=== PATIENT | female | born 1985 | race African-American/Black ===

== ENCOUNTER 2016-08-04 13:36 | Emergency (ER) | payer OTHER ==
[~2016-08-04] VITALS: Ht 152.4 cm; Wt 134.7 kg
[~2016-08-04 13:36] MED LIST: FLUT9.9S NS; HYDR-971 PO; PENI500T PO; TRAM-29 PO
[2016-08-04] MEDS ORDERED: IV NORMAL SALINE 1000ML BAG 1,000 ML IV SCH (14:07)
[2016-08-04] MEDS ORDERED: ONDANSETRON PF 4 MG/2 ML VIAL. IV ONE (14:15)
[2016-08-04] MEDS ORDERED: ONDANSETRON PF 4 MG/2 ML VIAL. ONE (14:19)
[2016-08-04 14:24] LABS: BILIRUBIN,URINE NEGATIVE (NEG); GLUCOSE,URINE NEGATIVE (NEG); NITRITE,URINE NEGATIVE (NEG); PH,URINE 5.5; PROTEIN,URINE NEGATIVE (NEG-TRACE); UROBILINOGEN,URINE 0.2 mg/dL (0.2 mg/dL)
[2016-08-04 14:41] LABS: BACTERIA,URINE FEW /HPF (0-FEW); RBC,URINE 0 /HPF (0-2); SQUAMOUS EPITHELIAL CELL,UR MANY /LPF; WBC,URINE RARE /HPF (0-4)
[2016-08-04 14:42] LABS: BASO % 1 % (0-3); EOS % 2 % (0-3); HEMATOCRIT 37.4 % (36.0-47.0); HEMOGLOBIN 12.5 g/dL (12.0-15.5); LYMPH # 1.7 x10^3/uL (1.0-4.8); LYMPH % 21 % (24-48); MEAN CORPUSCULAR HEMOGLOBIN 28 pg (25-35); MEAN CORPUSCULAR HGB CONC 34 g/dL (31-37); MEAN CORPUSCULAR VOLUME 83 fL (79-100); MONO % 9 % (0-9); NEUT % 68 % (31-73); PLATELET COUNT 362 x10^3/uL (140-400); RED CELL DISTRIBUTION WIDTH 15.5 % (11.5-14.5); WHITE BLOOD COUNT 8.4 x10^3/uL (4.0-11.0)
[2016-08-04 15:18] LABS: CALCIUM 8.9 mg/dL (8.5-10.1); CREATININE 1.3 mg/dL (0.6-1.0); POTASSIUM 3.2 mmol/L (3.5-5.1)
[2016-08-04 15:25] LABS: ALBUMIN 3.3 g/dL (3.4-5.0); ALBUMIN/GLOBULIN RATIO 0.7 (1.0-1.7); MAGNESIUM 1.8 mg/dL (1.8-2.4); TOTAL BILIRUBIN 0.6 mg/dL (0.2-1.0); TOTAL PROTEIN 7.8 g/dL (6.4-8.2)
[2016-08-04] MEDS ORDERED: metroNIDAZOLE 500 MG TABLET PO ONE (16:30)
[2016-08-04 16:41] VITALS: BP 119/66
[2016-08-04] MEDS ORDERED: METR500T PO (16:42)
--- NOTE | 2016-08-04 16:42 | PHYS DOC ---
Past Medical History Past Medical History: Asthma, Bronchitis, Diabetes-Type II, Hypertension, Other Additional Past Medical Histor: obesity Past Surgical History: No Surgical History Alcohol Use: None Drug Use: None Adult General Chief Complaint Chief Complaint: MULTIPLE COMPLAINTS HPI HPI Patient is a 30 year old female who presents with complaint of vaginal odor and itching for approximately 1 week. Patient states that she has had malodorous clearish discharge during that time. Patient also states that she has been having dizziness and lightheadedness. Patient denies any chest pain, shortness of breath, or abdominal pain associated with her symptoms. Patient does admit to mild dysuria. Due to persistent symptoms the patient came to the emergency department for further evaluation. Patient states that her dizziness has been positional. Patient states that she did have problems with diarrhea over one week ago. Denies any fevers currently. Patient rates her discomfort as 9 out of 10. Review of Systems Review of Systems Constitutional: Lightheadedness, denies fever or chills [] Eyes: Denies change in visual acuity, redness, or eye pain [] HENT: Denies nasal congestion or sore throat [] Respiratory: Denies cough or shortness of breath [] Cardiovascular: Denies chest pain or edema [] GI: Denies abdominal pain, nausea, vomiting, bloody stools or diarrhea [] : Malodorous vaginal discharge, vaginal itching [] Musculoskeletal: Denies back pain or joint pain [] Integument: Denies rash or skin lesions [] Neurologic: Denies headache, focal weakness or sensory changes [] Current Medications Current Medications Current Medications Medications (Trade) Dose Ordered Sig/Kay Start Time Stop Time Status Last Admin Dose Admin Metronidazole (Flagyl) 500 mg 1X ONCE 08/04/16 16:30 08/04/16 16:31 DC 08/04/16 16:41 500 MG Ondansetron HCl (Zofran) 4 mg STK-MED ONCE 08/04/16 14:19 08/04/16 14:20 DC Potassium Chloride (Klor-Con) 40 meq 1X ONCE 08/04/16 16:45 08/04/16 16:46 DC 08/04/16 16:41 40 MEQ Sodium Chloride 1,000 ml @ 1,000 mls/hr Q1H 08/04/16 14:07 08/04/16 15:06 DC 08/04/16 14:29 1,000 MLS/HR Allergies Allergies Allergies Coded Allergies Type Severity Reaction Last Updated Verified No Known Drug Allergies 09/11/13 No Physical Exam Physical Exam Constitutional: Alert, obese, afebrile, appears in mild discomfort. [] HENT: Normocephalic, atraumatic, bilateral external ears normal, oropharynx moist, no oral exudates, nose normal. [] Eyes: PERRLA, EOMI, conjunctiva normal, no discharge. [] Neck: Normal range of motion, no tenderness, supple, no stridor. [] Cardiovascular:Heart rate regular rhythm, no murmur [] Lungs & Thorax: Bilateral breath sounds clear to auscultation [] Abdomen: Bowel sounds normal, soft, no tenderness, no masses, no pulsatile masses. Pelvic: Normal external exam, clearish malodorous discharge present in vaginal canal, no vaginal bleeding present, no cervical motion tenderness, no midline or bilateral adnexal tenderness on bimanual exam [] Skin: Warm, dry, no erythema, no rash. [] Back: No tenderness, no CVA tenderness. [] Extremities: No tenderness, no cyanosis, no clubbing, ROM intact, no edema. [] Neurologic: Alert and oriented X 3, normal motor function, normal sensory function, no focal deficits noted. [] Current Patient Data Vital Signs Vital Signs Date Time Temp Pulse Resp B/P (MAP) Pulse Ox O2 Delivery O2 Flow Rate FiO2 08/04/16 16:41 88 18 119/66 (83) 99 Room Air 08/04/16 13:53 98.2 98.2 Lab Values Laboratory Tests Test 08/04/16 13:21 08/04/16 14:10 08/04/16 14:22 08/04/16 14:23 POC Urine HCG, Qualitative Hcg negative (Negative) Urine Collection Type Void Urine Color Straw Urine Clarity Clear Urine pH 5.5 Urine Specific [place] 1.010 Urine Protein Negative mg/dL (NEG-TRACE) Urine Glucose (UA) Negative mg/dL (NEG) Urine Ketones (Stick) Negative mg/dL (NEG) Urine Blood Negative (NEG) Urine Nitrite Negative (NEG) Urine Bilirubin Negative (NEG) Urine Urobilinogen Dipstick 0.2 mg/dL (0.2 mg/dL) Urine Leukocyte Esterase Negative (NEG) Urine RBC 0 /HPF (0-2) Urine WBC Rare /HPF (0-4) Urine Squamous Epithelial Cells Many /LPF Urine Bacteria Few /HPF (0-FEW) Urine Mucus Slight /LPF Glucose (Fingerstick) 130 mg/dL (70-99) H White Blood Count 8.4 x10^3/uL (4.0-11.0) Red Blood Count 4.50 x10^6/uL (3.50-5.40) Hemoglobin 12.5 g/dL (12.0-15.5) Hematocrit 37.4 % (36.0-47.0) Mean Corpuscular Volume 83 fL (79-100) Mean Corpuscular Hemoglobin 28 pg (25-35) Mean Corpuscular Hemoglobin Concent 34 g/dL (31-37) Red Cell Distribution Width 15.5 % (11.5-14.5) H Platelet Count 362 x10^3/uL (140-400) Neutrophils (%) (Auto) 68 % (31-73) Lymphocytes (%) (Auto) 21 % (24-48) L Monocytes (%) (Auto) 9 % (0-9) Eosinophils (%) (Auto) 2 % (0-3) Basophils (%) (Auto) 1 % (0-3) Neutrophils # (Auto) 5.7 x10^3uL (1.8-7.7) Lymphocytes # (Auto) 1.7 x10^3/uL (1.0-4.8) Monocytes # (Auto) 0.7 x10^3/uL (0.0-1.1) Eosinophils # (Auto) 0.2 x10^3/uL (0.0-0.7) Basophils # (Auto) 0.0 x10^3/uL (0.0-0.2) Sodium Level 136 mmol/L (136-145) Potassium Level 3.2 mmol/L (3.5-5.1) L Chloride Level 99 mmol/L (98-107) Carbon Dioxide Level 28 mmol/L (21-32) Anion Gap 9 (6-14) Blood Urea Nitrogen 28 mg/dL (7-20) H Creatinine 1.3 mg/dL (0.6-1.0) H Estimated GFR (Cockcroft-Gault) 59.0 BUN/Creatinine Ratio 22 (6-20) H Glucose Level 132 mg/dL (70-99) H Calcium Level 8.9 mg/dL (8.5-10.1) Magnesium Level 1.8 mg/dL (1.8-2.4) Total Bilirubin 0.6 mg/dL (0.2-1.0) Aspartate Amino Transferase (AST) 22 U/L (15-37) Alanine Aminotransferase (ALT) 29 U/L (14-59) Alkaline Phosphatase 75 U/L (46-116) Total Protein 7.8 g/dL (6.4-8.2) Albumin 3.3 g/dL (3.4-5.0) L Albumin/Globulin Ratio 0.7 (1.0-1.7) L Laboratory Tests 08/04/16 14:23 Laboratory Tests 08/04/16 14:23 Microbiology 08/04/16 Wet Prep - Final, Complete EKG EKG Interpreted by me: Heart rate 86, sinus rhythm, normal intervals, normal axis, T -wave inversions in the inferior leads and in V3 through V6, no acute ST elevations or depressions [] Radiology/Procedures Radiology/Procedures Not performed [] Course & Med Decision Making Course & Med Decision Making Pertinent Labs and Imaging studies reviewed. (See chart for details) The patient was given IV fluids in the emergency department. Patient's blood work shows evidence of dehydration. Patient also found to have low potassium levels which were replaced orally without difficulty. Patient's wet prep showed evidence of clue cells consistent with diagnosis of bacterial vaginosis. Patient started on Flagyl therapy in the emergency department. Patient will continue on seven-day course of antibiotics for treatment. Advised continued hydration and use of antibiotic for outpatient treatment. Patient was found to have irregularities on her EKG. Patient however does not display any evidence of chest pain or shortness of breath on exam. I consulted Dr. Shah of cardiology who stated it would be appropriate for the patient to follow-up as an outpatient for further evaluation of her abnormal EKG. Advised return emergency department for any worsening symptoms and recommended follow-up in [address] Shah. Patient voiced understanding and in agreement with treatment plan. Dragon Disclaimer Dragon Disclaimer This electronic medical record was generated, in whole or in part, using a voice recognition dictation system. Departure Departure Impression: Primary Impression: Bacterial vaginosis Additional Impressions: Dehydration Hypokalemia Disposition: 01 HOME, SELF-CARE Condition: IMPROVED Referrals: GEOVANNY ROQUE (PCP) SANDIP SHAH MD Patient Instructions: Bacterial Vaginosis, Dehydration, Adult, Hypokalemia Additional Instructions: Follow-up with Dr. Shah of cardiology in the next 3 days. Return to the emergency department for any worsening symptoms Scripts Metronidazole (FLAGYL) 500 Mg Tablet 1 TAB PO BID, #14 TAB Prov: NIRAV BROWN MD 08/04/16 Problem Qualifiers NIRAV BROWN MD August 04, 2016 16:42
[2016-08-04] MEDS ORDERED: POTASSIUM CHLORIDE 20 MEQ TABLET.ER. PO ONE (16:45)
--- NOTE | 2016-08-05 11:29 | EKG ---
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
== END 2016-08-04 16:53 | disposition home or self-care (01) ==
LOC: ER 13:36
DX: N76.0 Acute vaginitis (principal); E86.0 Dehydration; E87.6 Hypokalemia; I10 Essential (primary) hypertension; J45.909 Unspecified asthma, uncomplicated; E11.9 Type 2 diabetes mellitus without complications; E66.9 Obesity, unspecified; Z68.43 Body mass index [BMI] 50.0-59.9, adult
CPT/HCPCS: 36415; 80053; 81001; 82947; 83735; 85027; 87491; 87591; 93005; 96361; 96374; 99285; J2405; J7030; Q0111; 81025

== ENCOUNTER 2016-09-06 23:28 | Emergency (ER) | payer OTHER ==
[~2016-09-06] VITALS: Ht 152.4 cm; Wt 136.1 kg
[~2016-09-06 23:28] MED LIST changes: +METR500T PO; -TRAM-29 PO; +TRAM-48 PO
[2016-09-06] MEDS ORDERED: ASPI-482 PO (23:56)
--- NOTE | 2016-09-06 23:56 | PHYS DOC ---
Past Medical History Past Medical History: Asthma, Bronchitis, Diabetes-Type II, Hypertension, Other Additional Past Medical Histor: obesity Past Surgical History: No Surgical History Alcohol Use: None Drug Use: None Adult General Chief Complaint Chief Complaint: chest pain HPI HPI 31-year-old female presenting to the emergency department today with chest pain. She describes it as a gripping pain. It started approximately one or 2:00 this afternoon is intermittent and associated with lightheadedness. She reports normal oral intake and reports normal urinary output. The pain is nonradiating mild to moderate. She reports having an echocardiogram scheduled for later this week. Review of systems is negative for fevers chills nausea vomiting or diaphoresis. She denies unilateral leg swelling hemoptysis personal or family history of blood clotting disorder. She denies recent surgery or immobilization. All other review of systems is negative unless otherwise noted in history of present illness. Pertinent physical exam findings showed a soft nontender abdomen. Lungs are clear to auscultation. No evidence of DVT the legs. ED course: 31-year-old female presenting with chest pain. EKG unremarkable. Blood work obtained. EKG and chest x-ray unremarkable. Blood work unremarkable including a negative troponin. Perc negative. The patient was then discharged home in stable condition to follow up with their primary care physician over the next 2-3 days. They were to return if their symptoms worsened or if they were concerned for any reason. [id number] discharge instructions and return precautions were given. Patient's questions were answered to their satisfaction. Patient is comfortable plan. Review of Systems Review of Systems SEE ABOVE. Current Medications Current Medications Current Medications Medications (Trade) Dose Ordered Sig/[facility] Start Time Stop Time Status Last Admin Dose Admin Aspirin (Children'S Aspirin) 324 mg 1X ONCE 09/07/16 00:15 09/07/16 00:16 DC 09/07/16 00:15 324 MG Allergies Allergies Allergies Coded Allergies Type Severity Reaction Last Updated Verified No Known Drug Allergies 09/11/13 No Physical Exam Physical Exam Constitutional: Well developed, well nourished, no acute distress, non-toxic appearance. [] HENT: Normocephalic, atraumatic, bilateral external ears normal, oropharynx moist, no oral exudates, nose normal. Eyes: PERRLA, EOMI, conjunctiva normal, no discharge. Neck: Normal range of motion, no tenderness, supple, no stridor. [] Cardiovascular:Heart rate regular rhythm, no murmur Lungs & Thorax: Bilateral breath sounds clear to auscultation Abdomen: Bowel sounds normal, soft, no tenderness, no masses, no pulsatile masses. [] Skin: Warm, dry, no erythema, no rash. [] Back: No tenderness, no CVA tenderness. Extremities: No tenderness, no cyanosis, no clubbing, ROM intact, no edema. [] Neurologic: Alert and oriented X 3, normal motor function, normal sensory function, no focal deficits noted. [] Psychologic: Affect normal, judgement normal, mood normal. [] Current Patient Data Vital Signs Vital Signs Date Time Temp Pulse Resp B/P (MAP) Pulse Ox O2 Delivery O2 Flow Rate FiO2 09/06/16 23:47 98.1 93 20 158/93 (114) 99 Room Air 98.1 Lab Values Laboratory Tests Test 09/06/16 23:45 09/07/16 00:25 White Blood Count 8.3 x10^3/uL (4.0-11.0) Red Blood Count 3.88 x10^6/uL (3.50-5.40) Hemoglobin 10.9 g/dL (12.0-15.5) L Hematocrit 33.4 % (36.0-47.0) L Mean Corpuscular Volume 86 fL (79-100) Mean Corpuscular Hemoglobin 28 pg (25-35) Mean Corpuscular Hemoglobin Concent 33 g/dL (31-37) Red Cell Distribution Width 15.5 % (11.5-14.5) H Platelet Count 263 x10^3/uL (140-400) Neutrophils (%) (Auto) 67 % (31-73) Lymphocytes (%) (Auto) 22 % (24-48) L Monocytes (%) (Auto) 8 % (0-9) Eosinophils (%) (Auto) 3 % (0-3) Basophils (%) (Auto) 1 % (0-3) Neutrophils # (Auto) 5.5 x10^3uL (1.8-7.7) Lymphocytes # (Auto) 1.8 x10^3/uL (1.0-4.8) Monocytes # (Auto) 0.7 x10^3/uL (0.0-1.1) Eosinophils # (Auto) 0.2 x10^3/uL (0.0-0.7) Basophils # (Auto) 0.1 x10^3/uL (0.0-0.2) Sodium Level 141 mmol/L (136-145) Potassium Level 3.8 mmol/L (3.5-5.1) Chloride Level 104 mmol/L (98-107) Carbon Dioxide Level 30 mmol/L (21-32) Anion Gap 7 (6-14) Blood Urea Nitrogen 17 mg/dL (7-20) Creatinine 1.1 mg/dL (0.6-1.0) H Estimated GFR (Cockcroft-Gault) 71.1 Glucose Level 169 mg/dL (70-99) H Calcium Level 8.7 mg/dL (8.5-10.1) Troponin I Quantitative < 0.017 ng/mL (0.000-0.055) Lipase 113 U/L (73-393) Laboratory Tests 09/06/16 23:45 Laboratory Tests 09/07/16 00:25 EKG EKG [] EKG shows sinus rhythm with a regular rate. ST segments are congruent. [place] is normal. Intervals show mildly prolonged QRS. Not consistent with ACS. Radiology/Procedures Radiology/Procedures Chest x-ray reviewed by myself shows no obvious infiltrate or pneumothorax present. No obvious acute cardiopulmonary process present.[] Course & Med Decision Making Course & Med Decision Making Pertinent Labs and Imaging studies reviewed. (See chart for details) [] Dragon Disclaimer Dragon Disclaimer This electronic medical record was generated, in whole or in part, using a voice recognition dictation system. Departure Departure Impression: Primary Impression: Chest pain Additional Impression: Lightheadedness Disposition: 01 HOME, SELF-CARE Condition: STABLE Referrals: NO PCP (PCP) DENTON OLIVEIRA MD Patient Instructions: Chest Pain (Nonspecific) Additional Instructions: Thank you for allowing us to participate in your care today. Followup with your primary care physician in 3 days if your symptoms do not improve. If you do not have a primary care provider you can ask for a list of our primary care providers. Return to the emergency department you have any new or concerning findings. This should be evaluated by the primary care physician and any necessary consulting services for continued management within a few days after discharge. Return to emergency room if you have any new or concerning symptoms including but not limited to fever, chills, nausea, vomiting, intractable pain, any new rashes, chest pain, shortness of air, uncontrolled bleeding, difficulty breathing, and/or vision loss. Scripts Aspirin (ASPIR 81) 81 Mg Tablet.dr 1 TAB PO DAILY, #7 TAB 0 Refills Prov: MARIAMA HULL MD 09/06/16 Problem Qualifiers MARIAMA HULL MD Sep 06, 2016 23:56
[2016-09-07 00:03] LABS: BASO # 0.1 x10^3/uL (0.0-0.2); BASO % 1 % (0-3); EOS % 3 % (0-3); HEMATOCRIT 33.4 % (36.0-47.0); HEMOGLOBIN 10.9 g/dL (12.0-15.5); LYMPH # 1.8 x10^3/uL (1.0-4.8); LYMPH % 22 % (24-48); MEAN CORPUSCULAR HEMOGLOBIN 28 pg (25-35); MEAN CORPUSCULAR HGB CONC 33 g/dL (31-37); MEAN CORPUSCULAR VOLUME 86 fL (79-100); MONO % 8 % (0-9); NEUT % 67 % (31-73); PLATELET COUNT 263 x10^3/uL (140-400); RED BLOOD COUNT 3.88 x10^6/uL (3.50-5.40); RED CELL DISTRIBUTION WIDTH 15.5 % (11.5-14.5); WHITE BLOOD COUNT 8.3 x10^3/uL (4.0-11.0)
[2016-09-07] MEDS ORDERED: ASPIRIN CHEWABLE 81 MG TABLET. PO ONE (00:15)
[2016-09-07 00:42] LABS: CALCIUM 8.7 mg/dL (8.5-10.1); CREATININE 1.1 mg/dL (0.6-1.0); GFR 71.1; POTASSIUM 3.8 mmol/L (3.5-5.1)
[2016-09-07 01:14] VITALS: BP 158/73
--- NOTE | 2016-09-07 06:35 | EKG ---
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
--- NOTE | 2016-09-07 07:46 | RAD ---
Indication chest pain. A single view of the chest was obtained and is compared to a study 10/04/2014. The cardiac silhouette is at the upper limits of normal in size. There is no congestive heart failure focal infiltrate significant pleural fluid collection or pneumothorax. There has not, overall, been a significant change compared to the previous exam. IMPRESSION: No acute or focal process. No significant change
== END 2016-09-07 01:36 | disposition home or self-care (01) ==
LOC: ER 23:28
DX: R07.9 Chest pain, unspecified (principal); R42 Dizziness and giddiness; J45.909 Unspecified asthma, uncomplicated; E11.9 Type 2 diabetes mellitus without complications; I10 Essential (primary) hypertension
CPT/HCPCS: 36415; 71010; 80048; 83690; 84484; 85027; 93005; 99285-25

== ENCOUNTER → 2016-09-11 | Outpatient (CLI) | payer OTHER ==
[2016-09-07 01:14] VITALS: BP 158/73
[~2016-09-11] MED LIST changes: +ASPI-482 PO
--- NOTE | 2016-09-11 14:53 | CARD ---
APPROVED REPORT EXAM: Two-dimensional and M-mode echocardiogram with Doppler and color Doppler. Other Information Quality : GoodHR: 83bpm Rhythm : NSR INDICATION Hypertension/HCVD Chest Pain RISK FACTORS Obesity Diabetes 2D DIMENSIONS RVDd3.3 (2.9-3.5cm)Left Atrium(2D)3.3 (1.6-4.0cm) IVSd1.2 (0.7-1.1cm)Aortic Root(2D)2.3 (2.0-3.7cm) LVDd4.7 (3.9-5.9cm)LVOT Diameter2.3 (1.8-2.4cm) PWd1.4 (0.7-1.1cm)LVDs2.9 (2.5-4.0cm) FS (%) 37.2 %SV68.0 ml LVEF(%)67.1 (>50%) Aortic Valve AoV Peak Clarence.131.6cm/sAoV VTI23.3cm AO Peak GR.6.9mmHgLVOT Peak Clarence.113.3cm/s AO Mean GR.3mmHgAVA (VMAX)3.42cm2 Mitral Valve MV E Bhphuahj725.4cm/sMV E Peak Gr.4mmHg MV DECEL [id number] A Mjmefjgd81.0cm/s MV E Mean Gr.2mmHgE/A Ratio1.3 Pulmonary Valve PV Peak Bkzqmciy260.7cm/s Tricuspid Valve TR P. Mctkkqdq896ih/sTR Peak Gr.28mmHg Pulmonary Vein S1 Euqmqknd67.1cm/sD2 Bsoqisqa94.6cm/s PVa [id number] LEFT VENTRICLE The left ventricle is normal size. There is borderline to mild concentric left ventricular hypertroph y. The left ventricular systolic function is normal. The Ejection Fraction is 60-65%. There is normal LV segmental wall motion. The left ventricular diastolic function and filling is normal for age. RIGHT VENTRICLE The right ventricle is normal size. There is normal right ventricular wall thickness. The right ventr icular systolic function is normal. ATRIA The left atrium size is normal. The right atrium size is normal. The interatrial septum is intact wit h no evidence for an atrial septal defect or patent foramen ovale as noted on 2-D or Doppler imaging. AORTIC VALVE The aortic valve is trileaflet. The aortic valve is normal in structure and function. Doppler and Col or Flow revealed no significant aortic regurgitation. There is no significant aortic valvular stenosi s. MITRAL VALVE The mitral valve is normal in structure and function. There is no evidence of mitral valve prolapse. There is no mitral valve stenosis. Doppler and Color Flow revealed no mitral valve regurgitation note d. TRICUSPID VALVE Doppler and Color Flow revealed mild tricuspid regurgitation. The pulmonary artery systolic pressure is estimated at 31 mmHg. There is mild pulmonary hypertension. PULMONIC VALVE Doppler and Color Flow revealed no pulmonic valvular regurgitation. There is no pulmonic valvular mae nosis. GREAT VESSELS The aortic root is normal in size. The ascending aorta is normal in size. The pulmonary artery is nor mal. The IVC is normal in size and collapses >50% with inspiration. PERICARDIAL EFFUSION There is no evidence of significant pericardial effusion. Critical Notification Critical Value: No <Conclusion> The left ventricular systolic function is normal. The Ejection Fraction is 60-65%. There is normal LV segmental wall motion. Mild tricuspid regurgitation. The pulmonary artery systolic pressure is estimated at 31 mmHg. There is no evidence of significant pericardial effusion.
== END | disposition home or self-care (01) ==
LOC: ECHO 13:49
PROVIDERS: ATTEND Internal Medicine Cardiovascular Disease
DX: I07.1 Rheumatic tricuspid insufficiency (principal); I27.2 Other secondary pulmonary hypertension
CPT/HCPCS: 93306

== ENCOUNTER 2016-12-25 01:00 | Emergency (ER) | payer OTHER ==
[~2016-12-25] VITALS: Ht 157.5 cm; Wt 136.1 kg
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
[2016-12-25 03:24] LABS: BILIRUBIN,URINE NEGATIVE (NEG); GLUCOSE,URINE NEGATIVE (NEG); NITRITE,URINE NEGATIVE (NEG); PH,URINE 6.5; PROTEIN,URINE NEGATIVE (NEG-TRACE); UROBILINOGEN,URINE 0.2 mg/dL (0.2 mg/dL)
[2016-12-25 03:34] LABS: RBC,URINE 0 /HPF (0-2)
[2016-12-25 03:35] LABS: BACTERIA,URINE FEW /HPF (0-FEW); SQUAMOUS EPITHELIAL CELL,UR MOD /LPF
[2016-12-25] MEDS ORDERED: TIZA4CAP3 PO (03:41)
[2016-12-25] MEDS ORDERED: NAPR500T PO (03:41)
[2016-12-25 04:20] VITALS: BP 129/81
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
== END 2016-12-25 04:20 | disposition home or self-care (01) ==
LOC: ER 01:00
DX: S63.501A Unspecified sprain of right wrist, initial encounter (principal); E11.9 Type 2 diabetes mellitus without complications; I10 Essential (primary) hypertension; J45.909 Unspecified asthma, uncomplicated; V49.59XA Passenger injured in collision with other motor vehicles in traffic accident, initial encounter; Y93.89 Activity, other specified; Y99.8 Other external cause status; Y92.488 Other paved roadways as the place of occurrence of the external cause
CPT/HCPCS: 73110; 81001; 81025; 87086; 99285-25

== ENCOUNTER 2017-05-19 05:49 | Emergency (ER) | payer OTHER | END 2017-05-19 07:26 | disposition home or self-care (01) | LOC: ER 05:49 | DX: M25.561 Pain in right knee (principal); J45.909 Unspecified asthma, uncomplicated; I10 Essential (primary) hypertension; E11.9 Type 2 diabetes mellitus without complications; E66.9 Obesity, unspecified; Z68.43 Body mass index [BMI] 50.0-59.9, adult | CPT/HCPCS: 29505; 73564; 99284 ==

== ENCOUNTER 2017-06-10 12:27 | Emergency (ER) | payer OTHER ==
[2017-06-10 13:09] LABS: ADD MAN DIFF? NO
[2017-06-10 13:12] LABS: BASO % 1 % (0-3); EOS # 0.3 x10^3/uL (0.0-0.7); EOS % 4 % (0-3); HEMATOCRIT 39.3 % (36.0-47.0); HEMOGLOBIN 12.9 g/dL (12.0-15.5); LYMPH # 1.4 x10^3/uL (1.0-4.8); LYMPH % 19 % (24-48); MEAN CORPUSCULAR HEMOGLOBIN 28 pg (25-35); MEAN CORPUSCULAR HGB CONC 33 g/dL (31-37); MEAN CORPUSCULAR VOLUME 86 fL (79-100); MONO # 0.6 x10^3/uL (0.0-1.1); MONO % 7 % (0-9); NEUT # 5.2 x10^3uL (1.8-7.7); NEUT % 70 % (31-73); PLATELET COUNT 286 x10^3/uL (140-400); RED BLOOD COUNT 4.58 x10^6/uL (3.50-5.40); RED CELL DISTRIBUTION WIDTH 14.1 % (11.5-14.5); WHITE BLOOD COUNT 7.4 x10^3/uL (4.0-11.0)
[2017-06-10 13:24] LABS: ANION GAP 9 (6-14); BLOOD UREA NITROGEN 13 mg/dL (7-20); BUN/CREATININE RATIO 16 (6-20); CALCIUM 8.9 mg/dL (8.5-10.1); CARBON DIOXIDE 31 mmol/L (21-32); CHLORIDE 102 mmol/L (98-107); CREATININE 0.8 mg/dL (0.6-1.0); GFR 102.6; GLUCOSE 135 mg/dL (70-99); POTASSIUM 3.3 mmol/L (3.5-5.1); SODIUM 142 mmol/L (136-145)
[2017-06-10 13:26] LABS: TROPONINI < 0.017 ng/mL (0.000-0.055)
[2017-06-10] MEDS: METOPROLOL TARTRATE 5 MG/5 ML VIAL. IVP (13:27)
[2017-06-10 13:29] LABS: ALBUMIN 3.2 g/dL (3.4-5.0); ALBUMIN/GLOBULIN RATIO 0.7 (1.0-1.7); ALK PHOS 106 U/L (46-116); ALT (SGPT) 30 U/L (14-59); AST (SGOT) 19 U/L (15-37); TOTAL BILIRUBIN 0.4 mg/dL (0.2-1.0); TOTAL PROTEIN 7.6 g/dL (6.4-8.2)
[2017-06-10 13:33] LABS: URINE HCG POC HCG NEGATIVE (Negative)
[2017-06-10 13:42] LABS: BILIRUBIN,URINE NEGATIVE (NEG); CLARITY,URINE CLEAR; COLOR,URINE YELLOW; GLUCOSE,URINE NEGATIVE (NEG); NITRITE,URINE NEGATIVE (NEG); PROTEIN,URINE NEGATIVE (NEG-TRACE); UROBILINOGEN,URINE 0.2 mg/dL (0.2 mg/dL)
[2017-06-10 13:57] LABS: BACTERIA,URINE MODERATE /HPF (0-FEW); SQUAMOUS EPITHELIAL CELL,UR MANY /LPF; WBC,URINE OCC /HPF (0-4)
== END 2017-06-10 15:00 | disposition home or self-care (01) ==
LOC: ER 12:27
DX: R42 Dizziness and giddiness (principal); I10 Essential (primary) hypertension; E11.9 Type 2 diabetes mellitus without complications; J45.909 Unspecified asthma, uncomplicated; E66.9 Obesity, unspecified; Z68.43 Body mass index [BMI] 50.0-59.9, adult
CPT/HCPCS: 36415; 70450; 80053; 81001; 81025; 84484; 85025; 87086; 93005; 96374; 99285-25; J3490

== ENCOUNTER 2017-09-05 19:36 | Emergency (ER) | payer SELFPAY, OTHER | END 2017-09-05 21:40 | disposition home or self-care (01) | LOC: ER 19:36 | DX: S00.93XA Contusion of unspecified part of head, initial encounter (principal); S76.011A Strain of muscle, fascia and tendon of right hip, initial encounter; R11.0 Nausea; I10 Essential (primary) hypertension; W01.0XXA Fall on same level from slipping, tripping and stumbling without subsequent striking against object, initial encounter; Y93.89 Activity, other specified; Y92.89 Other specified places as the place of occurrence of the external cause; Y99.8 Other external cause status | CPT/HCPCS: 70450; 99284 ==

== ENCOUNTER 2018-08-15 22:04 | Emergency (ER) | payer OTHER ==
[~2018-08-15] VITALS: Ht 162.6 cm; Wt 136.1 kg
[~2018-08-15 22:04] MED LIST changes: +ALPR0.25 PO; +ALPR0.254 PO; +AMLO5TAB10 PO; +CARV3.1210 PO; +HYDR-3164 PO; -HYDR-971 PO; +LOSA25TA PO; +NAPR-683 PO; +Pantoprazole PO; +TIZA4CAP3 PO
[2018-08-15] MEDS ORDERED: IV NORMAL SALINE 1000ML BAG 1,000 ML IV ONE (23:15)
[2018-08-15 23:17] LABS: BILIRUBIN,URINE NEGATIVE (NEG); CLARITY,URINE CLEAR; COLOR,URINE YELLOW; NITRITE,URINE NEGATIVE (NEG); PROTEIN,URINE NEGATIVE (NEG-TRACE); UROBILINOGEN,URINE 0.2 mg/dL (0.2 mg/dL)
[2018-08-15 23:24] LABS: SQUAMOUS EPITHELIAL CELL,UR MANY /LPF
[2018-08-15 23:25] LABS: BACTERIA,URINE FEW /HPF (0-FEW); RBC,URINE 0 /HPF (0-2)
[2018-08-15 23:38] LABS: BASO # 0.1 x10^3/uL (0.0-0.2); BASO % 1 % (0-3); EOS # 0.2 x10^3/uL (0.0-0.7); EOS % 3 % (0-3); HEMOGLOBIN 10.8 g/dL (12.0-15.5); LYMPH # 1.7 x10^3/uL (1.0-4.8); LYMPH % 19 % (24-48); MEAN CORPUSCULAR HEMOGLOBIN 29 pg (25-35); MEAN CORPUSCULAR HGB CONC 33 g/dL (31-37); MEAN CORPUSCULAR VOLUME 88 fL (79-100); MONO # 0.7 x10^3/uL (0.0-1.1); MONO % 8 % (0-9); NEUT # 6.2 x10^3uL (1.8-7.7); NEUT % 70 % (31-73); PLATELET COUNT 252 x10^3/uL (140-400); RED BLOOD COUNT 3.74 x10^6/uL (3.50-5.40); RED CELL DISTRIBUTION WIDTH 13.4 % (11.5-14.5); WHITE BLOOD COUNT 8.9 x10^3/uL (4.0-11.0)
[2018-08-15 23:45] LABS: CALCIUM 8.8 mg/dL (8.5-10.1); CREATININE 1.1 mg/dL (0.6-1.0); GFR 70.6; POTASSIUM 3.6 mmol/L (3.5-5.1)
[2018-08-15] MEDS ORDERED: KETOROLAC 15 MG/ML VIAL. IV ONE (23:45)
[2018-08-15 23:50] LABS: ALBUMIN 3.1 g/dL (3.4-5.0); ALBUMIN/GLOBULIN RATIO 0.8 (1.0-1.7); MAGNESIUM 1.6 mg/dL (1.8-2.4); TOTAL BILIRUBIN 0.3 mg/dL (0.2-1.0); TOTAL PROTEIN 7.1 g/dL (6.4-8.2)
[2018-08-15] MEDS ORDERED: CEPH-264 PO (23:58)
[2018-08-15] MEDS ORDERED: PHEN-318 PO (23:58)
--- NOTE | 2018-08-15 23:58 | PHYS DOC ---
Past Medical History Past Medical History: Hypertension Additional Past Medical Histor: PRE-DIABETES Past Surgical History: No Surgical History Alcohol Use: None Drug Use: None Adult General Chief Complaint Chief Complaint: ABDOMINAL PAIN HPI HPI Patient is a 32 year old [f__sex] who presents with [] Review of Systems Review of Systems Constitutional: Denies fever or chills [] Eyes: Denies change in visual acuity, redness, or eye pain [] HENT: Denies nasal congestion or sore throat [] Respiratory: Denies cough or shortness of breath [] Cardiovascular: No additional information not addressed in HPI [] GI: Denies abdominal pain, nausea, vomiting, bloody stools or diarrhea [] : Denies dysuria or hematuria [] Musculoskeletal: Denies back pain or joint pain [] Integument: Denies rash or skin lesions [] Neurologic: Denies headache, focal weakness or sensory changes [] Endocrine: Denies polyuria or polydipsia [] All other systems were reviewed and found to be within normal limits, except as documented in this note. Current Medications Current Medications Current Medications Medications (Trade) Dose Ordered Sig/Kay Start Time Stop Time Status Last Admin Dose Admin Ceftriaxone Sodium (Rocephin) 1 gm 1X ONCE 08/16/18 00:00 08/16/18 00:01 UNV Ketorolac Tromethamine (Toradol 15mg Vial) 15 mg 1X ONCE 08/15/18 23:45 08/15/18 23:46 DC Phenazopyridine HCl (Pyridium) 200 mg 1X ONCE 08/15/18 23:45 08/15/18 23:46 UNV Sodium Chloride 1,000 ml @ 1,000 mls/hr 1X ONCE 08/15/18 23:15 08/16/18 00:14 08/15/18 23:28 1,000 MLS/HR Allergies Allergies Allergies Coded Allergies Type Severity Reaction Last Updated Verified No Known Drug Allergies 09/11/13 No Physical Exam Physical Exam Constitutional: Well developed, well nourished, no acute distress, non-toxic appearance. [] HENT: Normocephalic, atraumatic, bilateral external ears normal, oropharynx moist, no oral exudates, nose normal. [] Eyes: PERRLA, EOMI, conjunctiva normal, no discharge. [] Neck: Normal range of motion, no tenderness, supple, no stridor. [] Cardiovascular:Heart rate regular rhythm, no murmur [] Lungs & Thorax: Bilateral breath sounds clear to auscultation [] Abdomen: Bowel sounds normal, soft, no tenderness, no masses, no pulsatile masses. [] Skin: Warm, dry, no erythema, no rash. [] Back: No tenderness, no CVA tenderness. [] Extremities: No tenderness, no cyanosis, no clubbing, ROM intact, no edema. [] Neurologic: Alert and oriented X 3, normal motor function, normal sensory function, no focal deficits noted. [] Psychologic: Affect normal, judgement normal, mood normal. [] Current Patient Data Vital Signs Vital Signs Date Time Temp Pulse Resp B/P (MAP) Pulse Ox O2 Delivery O2 Flow Rate FiO2 08/15/18 22:39 97.5 94 16 181/111 (134) 97 Room Air 97.5 Lab Values Laboratory Tests Test 08/15/18 22:51 08/15/18 23:07 08/15/18 23:26 Urine Collection Type Unknown Urine Color Yellow Urine Clarity Clear Urine pH 6.0 Urine Specific [place] 1.025 Urine Protein Negative mg/dL (NEG-TRACE) Urine Glucose (UA) Negative mg/dL (NEG) Urine Ketones (Stick) Negative mg/dL (NEG) Urine Blood Negative (NEG) Urine Nitrite Negative (NEG) Urine Bilirubin Negative (NEG) Urine Urobilinogen Dipstick 0.2 mg/dL (0.2 mg/dL) Urine Leukocyte Esterase Moderate (NEG) Urine RBC 0 /HPF (0-2) Urine WBC 11-20 /HPF (0-4) Urine Squamous Epithelial Cells Many /LPF Urine Bacteria Few /HPF (0-FEW) Urine Mucus Slight /LPF POC Urine HCG, Qualitative Hcg negative (Negative) White Blood Count 8.9 x10^3/uL (4.0-11.0) Red Blood Count 3.74 x10^6/uL (3.50-5.40) Hemoglobin 10.8 g/dL (12.0-15.5) L Hematocrit 33.0 % (36.0-47.0) L Mean Corpuscular Volume 88 fL (79-100) Mean Corpuscular Hemoglobin 29 pg (25-35) Mean Corpuscular Hemoglobin Concent 33 g/dL (31-37) Red Cell Distribution Width 13.4 % (11.5-14.5) Platelet Count 252 x10^3/uL (140-400) Neutrophils (%) (Auto) 70 % (31-73) Lymphocytes (%) (Auto) 19 % (24-48) L Monocytes (%) (Auto) 8 % (0-9) Eosinophils (%) (Auto) 3 % (0-3) Basophils (%) (Auto) 1 % (0-3) Neutrophils # (Auto) 6.2 x10^3uL (1.8-7.7) Lymphocytes # (Auto) 1.7 x10^3/uL (1.0-4.8) Monocytes # (Auto) 0.7 x10^3/uL (0.0-1.1) Eosinophils # (Auto) 0.2 x10^3/uL (0.0-0.7) Basophils # (Auto) 0.1 x10^3/uL (0.0-0.2) Sodium Level 140 mmol/L (136-145) Potassium Level 3.6 mmol/L (3.5-5.1) Chloride Level 104 mmol/L (98-107) Carbon Dioxide Level 28 mmol/L (21-32) Anion Gap 8 (6-14) Blood Urea Nitrogen 20 mg/dL (7-20) Creatinine 1.1 mg/dL (0.6-1.0) H Estimated GFR (Cockcroft-Gault) 70.6 BUN/Creatinine Ratio 18 (6-20) Glucose Level 126 mg/dL (70-99) H Calcium Level 8.8 mg/dL (8.5-10.1) Magnesium Level 1.6 mg/dL (1.8-2.4) L Total Bilirubin 0.3 mg/dL (0.2-1.0) Aspartate Amino Transferase (AST) 16 U/L (15-37) Alanine Aminotransferase (ALT) 24 U/L (14-59) Alkaline Phosphatase 89 U/L (46-116) Total Protein 7.1 g/dL (6.4-8.2) Albumin 3.1 g/dL (3.4-5.0) L Albumin/Globulin Ratio 0.8 (1.0-1.7) L Lipase 110 U/L (73-393) Laboratory Tests 08/15/18 23:26 Laboratory Tests 08/15/18 23:26 EKG EKG [] Radiology/Procedures Radiology/Procedures [] Course & Med Decision Making Course & Med Decision Making Pertinent Labs and Imaging studies reviewed. (See chart for details) [] Dragon Disclaimer Dragon Disclaimer This electronic medical record was generated, in whole or in part, using a voice recognition dictation system. Departure Departure Impression: Primary Impression: Urinary tract infection Additional Impression: Hypomagnesemia Disposition: HOME, SELF-CARE Condition: STABLE Referrals: BETTY CRAWFORD MD (PCP) Patient Instructions: Hypomagnesemia, Urinary Tract Infection, [facility] Scripts Phenazopyridine Hcl (PYRIDIUM) 200 Mg Tablet 200 MG PO TID for 2 Days, #6 TAB Prov: DENTON KHAN DO 08/15/18 Cephalexin (KEFLEX) 500 Mg Capsule 500 MG PO TID for 7 Days, #21 CAP Prov: DENTON KHAN DO 08/15/18 Problem Qualifiers Primary Impression: Urinary tract infection Urinary tract infection type: acute cystitis Hematuria presence: without hematuria Qualified Codes: N30.00 - Acute cystitis without hematuria DENTON KHAN DO August 15, 2018 23:58
[2018-08-15] MEDS ORDERED: cefTRIAXone IM 1 GM VIAL IM ONE (23:59)
[2018-08-16] MEDS ORDERED: cefTRIAXone IV Push 1 GM VIAL. IVP ONE
[2018-08-16] MEDS ORDERED: PHENAZOPYRIDINE 200 MG TABLET. PO ONE
[2018-08-16] MEDS ORDERED: MAGNESIUM OXIDE 400 MG TABLET PO ONE
[2018-08-16 00:03] VITALS: BP 157/103
== END 2018-08-16 00:30 | disposition home or self-care (01) ==
LOC: ER 22:04
DX: N30.00 Acute cystitis without hematuria (principal); E83.42 Hypomagnesemia; I10 Essential (primary) hypertension
CPT/HCPCS: 36415; 80053; 81001; 81025; 83690; 83735; 85025; 87086; 96374; 96375; 99284; J0696; J1885; J7030

== ENCOUNTER 2018-08-28 23:18 | Emergency (ER) | payer MEDICAID, OTHER, SELFPAY ==
[~2018-08-28] VITALS: Ht 152.4 cm; Wt 136.1 kg
[~2018-08-28 23:18] MED LIST changes: +CEPH-264 PO; +PHEN-318 PO
[2018-08-28 23:42] VITALS: BP 155/100
[2018-08-29] MEDS ORDERED: ACETAMINOPHEN 500 MG TABLET PO ONE (00:15)
--- NOTE | 2018-08-29 00:18 | PHYS DOC ---
Past Medical History Past Medical History: Anxiety, Bronchitis, Hypertension, TIA Additional Past Medical Histor: PRE-DIABETES (PIERO VERGARA APRN) Past Surgical History: No Surgical History (PIERO VERGARA APRN) Alcohol Use: None Drug Use: None (PIERO VERGARA APRN) Adult General Chief Complaint Chief Complaint: HEADACHE HPI HPI Patient is a 32 year old female] who presents with [left sided headache for the past 3 days. Patient reports she was concerned because her head has been hurting on the left side for the last 3 days, has also had some pain to her left hand, and her left leg. Reports she was concerned because she thought she might be having a stroke. Patient states she was also having some chest pain and feels some palpitations. States this has been going on for the last month or 2. Patient denies any shortness of breath. Does state she has had a lot of extra stress in her life recently. Denies nausea. Denies vomiting. Denies weakness. Denies dizziness. Denies lightheadedness. States she feels good otherwise, but does tend to worry quite a bit. States she has not taken any medicine for her headache because she did not know what to take.] (PIERO VERGARA APRN) Review of Systems Review of Systems Constitutional: Denies fever or chills [] Eyes: Denies change in visual acuity, redness, or eye pain [] HENT: Denies nasal congestion or sore throat [] Respiratory: Denies cough or shortness of breath [] Cardiovascular: No additional information not addressed in HPI [] GI: Denies abdominal pain, nausea, vomiting, bloody stools or diarrhea [] : Denies dysuria or hematuria [] Musculoskeletal: Denies back pain or joint pain [] Integument: Denies rash or skin lesions [] Neurologic: Denies headache, focal weakness or sensory changes [] Endocrine: Denies polyuria or polydipsia [] All other systems were reviewed and found to be within normal limits, except as documented in this note. (PIERO VERGARA APRN) Current Medications Current Medications Current Medications Medications (Trade) Dose Ordered Sig/Kay Start Time Stop Time Status Last Admin Dose Admin Acetaminophen (Tylenol) 1,000 mg 1X ONCE 08/29/18 00:15 08/29/18 00:16 DC 08/29/18 00:22 1,000 MG (DENTON KHAN DO) Allergies Allergies Allergies Coded Allergies Type Severity Reaction Last Updated Verified No Known Drug Allergies 09/11/13 No (DENTON KHAN DO) Physical Exam Physical Exam Constitutional: Well developed, well nourished, no acute distress, non-toxic appearance. [] HENT: Normocephalic, atraumatic, left ear normal. Right ear noted significant scarring from prior infections., oropharynx moist, no oral exudates, nose normal. [] Eyes: PERRLA, EOMI, conjunctiva normal, no discharge. [] Neck: Normal range of motion, no tenderness, supple, no stridor. [] Cardiovascular:Heart rate regular rhythm, no murmur [] Lungs & Thorax: Bilateral breath sounds clear to auscultation [] Abdomen: Bowel sounds normal, soft, no tenderness, no masses, no pulsatile masses. [] Skin: Warm, dry, no erythema, no rash. [] Back: No tenderness, no CVA tenderness. [] Extremities: No tenderness, no cyanosis, no clubbing, ROM intact, no edema. [] Neurologic: Alert and oriented X 3, normal motor function, normal sensory function, no focal deficits noted. [] Psychologic: Affect normal, judgement normal, mood normal. [] (PIERO VERGARA APRN) Current Patient Data Vital Signs Vital Signs Date Time Temp Pulse Resp B/P (MAP) Pulse Ox O2 Delivery O2 Flow Rate FiO2 08/28/18 23:42 98.8 85 18 155/100 (118) 97 Room Air 98.8 (DENTON KHAN DO) EKG EKG [] (PIERO VERGARA APRN) Radiology/Procedures Radiology/Procedures [] (PIERO VERGARA APRN) Course & Med Decision Making Course & Med Decision Making Pertinent Labs and Imaging studies reviewed. (See chart for details) [Discussed findings with patient, during assessment. Patient with full range of motion, no loss of sensation, fluent speech, mental status normal and alert, no unilateral weakness. Patient awakens, laughs, conversational during exam. Does start crying when she reports a lot of stress she has been under recently. Discussed patient does not appear to be having symptoms of a stroke at this time, which she reports she is relieved. Discussed palpitations, often being without known cause, offer lab tests and cardiac workup, patient states she believes it is stressed on that we have talked about it. States she does not want any lab work or EKG done at this time. Advised patient with her being prediabetic, she may have decreased sensitivity to chest pain symptoms in cardiac events, patient continues to state she feels that she is okay to go home at this time and understands she is needs to manage her stress better. Stress management techniques with relaxation, counseling, therapy. Patient agreeable to take [id number] medicines for her headache, reports she started feeling little better after discussion here in the ER. Patient remains conversational, friendly, with occasional laughter during exam.] (PIERO VERGARA APRN) Dragon Disclaimer Dragon Disclaimer This electronic medical record was generated, in whole or in part, using a voice recognition dictation system. (PIERO VERGARA APRN) Departure Departure Impression: Primary Impression: Feeling worried Additional Impressions: Stress at home Stress at work Disposition: HOME, SELF-CARE Condition: GOOD Referrals: BETTY CRAWFORD MD (PCP) Patient Instructions: Stress Additional Instructions: As we discussed, you should find a way to manage your stress. If you get these headaches, you can take Tylenol (2) Extra strength tylenol every 6 hours, or (4) Ibuprofen 200mg every 8 hours for your discomfort. You can also try Excedrin, or BC Powder, or Turmeric - which is a spice which works as a great antiinflammatory medication. Follow up with Cristina Jc if you continue to have stress and other concerns Remember, we're here to evaluate you if you have chest pain, weakness, or other concerns. Attending Signature Attending Signature I have reviewed the PA/ESTATE PLANNER's note and plan of care. I was available for consultation as needed during the patient's visit in the emergency department. I agree with the clinical impression, plan, and disposition. (DENTON KHAN DO) Problem Qualifiers PIERO VERGARA APRN August 29, 2018 00:18 DENTON KHAN DO Sep 02, 2018 06:14
== END 2018-08-29 00:25 | disposition home or self-care (01) ==
LOC: ER 23:18
DX: R45.82 Worries (principal); R51 Headache; Z56.3 Stressful work schedule; Z63.8 Other specified problems related to primary support group; F41.9 Anxiety disorder, unspecified; I10 Essential (primary) hypertension; Z86.73 Personal history of transient ischemic attack (TIA), and cerebral infarction without residual deficits
CPT/HCPCS: 99281; 99282

== ENCOUNTER 2019-04-18 16:13 | Emergency (ER) | payer MEDICAID ==
[2019-04-18 17:33] VITALS: BP 182/109
[2019-04-18 17:58] LABS: INFLUENZA A PATIENT NEGATIVE (NEGATIVE); INFLUENZA B PATIENT NEGATIVE (NEGATIVE)
[2019-04-18 18:03] LABS: BILIRUBIN,URINE NEGATIVE (NEG); CLARITY,URINE CLOUDY; COLOR,URINE YELLOW; NITRITE,URINE NEGATIVE (NEG); PROTEIN,URINE 30 mg/dL (NEG-TRACE)
[2019-04-18 18:20] LABS: AMORPHOUS SEDIMENT,UR PRESENT /HPF; BACTERIA,URINE 0 /HPF (0-FEW); RBC,URINE 0 /HPF (0-2); SQUAMOUS EPITHELIAL CELL,UR MOD /LPF
[2019-04-18] MEDS ORDERED: CEPH500C PO (18:30)
[2019-04-18] MEDS ORDERED: BENZ100C PO (18:30)
[2019-04-18] MEDS ORDERED: PHEN100T82 PO (18:30)
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
== END 2019-04-18 18:39 | disposition home or self-care (01) ==
LOC: ER 16:13
DX: N39.0 Urinary tract infection, site not specified (principal); J06.9 Acute upper respiratory infection, unspecified; I10 Essential (primary) hypertension; F41.9 Anxiety disorder, unspecified; Z86.73 Personal history of transient ischemic attack (TIA), and cerebral infarction without residual deficits
CPT/HCPCS: 81001; 87804; 99284

== ENCOUNTER 2019-08-05 22:47 | Emergency (ER) | payer SELFPAY ==
[~2019-08-05] VITALS: Ht 152.4 cm; Wt 131.8 kg
[~2019-08-05 22:47] MED LIST changes: +BENZ100C PO; +CEPH500C PO; +PHEN100T82 PO
[2019-08-05 23:04] VITALS: BP 194/82
[2019-08-05 23:45] LABS: BILIRUBIN,URINE NEGATIVE (NEG); CLARITY,URINE CLEAR; COLOR,URINE YELLOW; NITRITE,URINE NEGATIVE (NEG); PROTEIN,URINE NEGATIVE (NEG-TRACE)
[2019-08-05 23:53] LABS: BACTERIA,URINE FEW /HPF (0-FEW); SQUAMOUS EPITHELIAL CELL,UR MOD /LPF
[2019-08-06] MEDS ORDERED: METR500T PO (01:01)
--- NOTE | 2019-08-06 01:01 | PHYS DOC ---
Past Medical History Past Medical History: Anxiety, Bronchitis, Hypertension, TIA Additional Past Medical Histor: PRE-DIABETES, PTSD Past Surgical History: No Surgical History Smoking Status: Never Smoker Alcohol Use: Occasionally Drug Use: None General Adult EDM: Chief Complaint: PAIN ON URINATION HPI: HPI: Patient is a 33 year old female who presents with complaint of urinary discomfort and vaginal discharge that has odor to it. Patient states that she has a history of bacterial vaginosis and this is very similar to when she had that in the past. She denies any abdominal pain. She denies any nausea or, vomiting or fever. [] Review of Systems: Review of Systems: Constitutional: Denies fever or chills. [] Respiratory: Denies cough or shortness of breath. [] Cardiovascular: Denies chest pain or edema. [] GI: Denies abdominal pain, nausea, vomiting, bloody stools or diarrhea. [] : Complains of dysuria and vaginal discharge. [] Neurologic: Denies headache, focal weakness or sensory changes. [] Heart Score: Risk Factors: Risk Factors: DM, Current or recent (<one month) smoker, HTN, HLP, family history of CAD, obesity. Risk Scores: Score 0 - 3: 2.5% MACE over next 6 weeks - Discharge Home Score 4 - 6: 20.3% MACE over next 6 weeks - Admit for Clinical Observation Score 7 - 10: 72.7% MACE over next 6 weeks - Early Invasive Strategies Allergies: Allergies: Allergies Coded Allergies Type Severity Reaction Last Updated Verified No Known Drug Allergies 09/11/13 No Physical Exam: PE: Constitutional: Well developed, well nourished, no acute distress, non-toxic appearance. [] Cardiovascular: Regular rate and rhythm [] Lungs & Thorax: Bilateral breath sounds clear to auscultation [] Abdomen: Bowel sounds normal, soft, no tenderness. [] Skin: Warm, dry, no erythema, no rash. [] Current Patient Data: Labs: Laboratory Tests Test 08/05/19 22:50 08/05/19 22:58 Urine Collection Type Unknown Urine Color Yellow Urine Clarity Clear Urine pH 6.0 (<5.0-8.0) Urine Specific [place] 1.020 (1.000-1.030) Urine Protein Negative mg/dL (NEG-TRACE) Urine Glucose (UA) Negative mg/dL (NEG) Urine Ketones (Stick) Negative mg/dL (NEG) Urine Blood Negative (NEG) Urine Nitrite Negative (NEG) Urine Bilirubin Negative (NEG) Urine Urobilinogen Dipstick 1.0 mg/dL (0.2 mg/dL) Urine Leukocyte Esterase Negative (NEG) Urine RBC 1-2 /HPF (0-2) Urine WBC 1-4 /HPF (0-4) Urine Squamous Epithelial Cells Mod /LPF Urine Bacteria Few /HPF (0-FEW) Urine Mucus Marked /LPF POC Urine HCG, Qualitative Hcg negative (Negative) Microbiology 08/05/19 Wet Prep - Final, Complete Vital Signs: Vital Signs Date Time Temp Pulse Resp B/P (MAP) Pulse Ox O2 Delivery O2 Flow Rate FiO2 08/05/19 23:04 98.3 93 16 194/82 (119) 93 Room Air 98.3 EKG: EKG: [] Radiology/Procedures: Radiology/Procedures: [] Course & Med Decision Making: Course & Med Decision Making Pertinent Labs and Imaging studies reviewed. (See chart for details) [] Dragon Disclaimer: Dragon Disclaimer: This electronic medical record was generated, in whole or in part, using a voice recognition dictation system. Departure Departure Impression: Primary Impression: Bacterial vaginosis Disposition: HOME, SELF-CARE Condition: STABLE Referrals: BETTY CRAWFORD MD (PCP) Patient Instructions: Bacterial Vaginosis Scripts Metronidazole (FLAGYL) 500 Mg Tablet 1 TAB PO BID, #14 TAB Prov: CHILO BARAHONA Jr. DO 08/06/19 CHILO BARAHONA Jr. DO August 06, 2019 01:01
[2019-08-06] MEDS ORDERED: metroNIDAZOLE 500 MG TABLET PO ONE (01:30)
== END 2019-08-06 01:22 | disposition home or self-care (01) ==
LOC: ER 22:47
DX: N76.0 Acute vaginitis (principal); R30.0 Dysuria; F41.9 Anxiety disorder, unspecified; I10 Essential (primary) hypertension; F43.12 Post-traumatic stress disorder, chronic; Z86.73 Personal history of transient ischemic attack (TIA), and cerebral infarction without residual deficits
CPT/HCPCS: 81001; 81025; 99283; Q0111

== ENCOUNTER 2019-11-29 18:56 | Emergency (ER) | payer MEDICAID ==
[~2019-11-29] VITALS: Ht 154.9 cm; Wt 134.1 kg
[2019-11-29 19:20] VITALS: BP 189/82
[2019-11-29 19:41] LABS: BASO # 0.1 x10^3/uL (0.0-0.2); BASO % 1 % (0-3); EOS # 0.3 x10^3/uL (0.0-0.7); EOS % 3 % (0-3); HEMATOCRIT 37.3 % (36.0-47.0); HEMOGLOBIN 12.2 g/dL (12.0-15.5); LYMPH # 1.8 x10^3/uL (1.0-4.8); LYMPH % 21 % (24-48); MEAN CORPUSCULAR HEMOGLOBIN 28 pg (25-35); MEAN CORPUSCULAR HGB CONC 33 g/dL (31-37); MEAN CORPUSCULAR VOLUME 87 fL (79-100); MONO # 0.7 x10^3/uL (0.0-1.1); MONO % 9 % (0-9); NEUT # 5.6 x10^3/uL (1.8-7.7); NEUT % 66 % (31-73); PLATELET COUNT 286 x10^3/uL (140-400); RED BLOOD COUNT 4.32 x10^6/uL (3.50-5.40); RED CELL DISTRIBUTION WIDTH 14.6 % (11.5-14.5); WHITE BLOOD COUNT 8.5 x10^3/uL (4.0-11.0)
[2019-11-29] MEDS ORDERED: DICYCLOMINE HCL 10 MG CAPSULE PO ONE (19:45)
[2019-11-29] MEDS ORDERED: FAMOTIDINE 20 MG TABLET. PO ONE (19:45)
[2019-11-29] MEDS ORDERED: MAG HYDROX/ALUMINUM HYD/SIMETH 30 ML ORAL.SUSP PO ONE (19:45)
[2019-11-29 19:49] LABS: CREATININE 0.9 mg/dL (0.6-1.0); GFR 87.8; POTASSIUM 3.4 mmol/L (3.5-5.1)
--- NOTE | 2019-11-29 19:54 | PHYS DOC ---
Past Medical History Past Medical History: Anxiety, Bronchitis, Hypertension, TIA Additional Past Medical Histor: PRE-DIABETES, PTSD Past Surgical History: No Surgical History Smoking Status: Never Smoker Alcohol Use: Occasionally Drug Use: None General Adult EDM: Chief Complaint: DIARRHEA HPI: HPI: The history was obtained from the patient. Patient is a 34-year-old female with PMH anxiety, obesity, hypertension who presents with a chief complaint of loose stool and concern for STD. Patient states she is having intercourse 2 weeks ago when the condom broke. She states that she stopped having intercourse immediately. However she is concerned she may have a sexually transmitted disease because she is having loose stool. She states he has had 3 episodes of loose stool over the past 2 days. Denies watery stool. Denies blood in the stool. States she has no vaginal bleeding or discharge. Denies any vaginal discomfort. States she is unsure of if her sexual partner is having symptoms because she has not been able to reach him. Denies any dysuria, hematuria, polyuria. Notes very mild epigastric abdominal discomfort. She has been able to tolerate p.o. without difficulty. Denies vomiting. Denies fevers. Denies abdominal surgical history. Denies alcohol or drug abuse. Denies any recent travel or access to well water. No other complaints. Review of Systems: Review of Systems: Constitutional: Denies fever or chills. [] Eyes: Denies change in visual acuity. [] HENT: Denies nasal congestion or sore throat. [] Respiratory: Denies cough or shortness of breath. [] Cardiovascular: Denies chest pain or edema. [] GI: Positive for abdominal pain and loose stool : Denies dysuria. [] Musculoskeletal: Denies back pain or joint pain. [] Integument: Denies rash. [] Neurologic: Denies headache, focal weakness or sensory changes. [] Endocrine: Denies polyuria or polydipsia. [] Lymphatic: Denies swollen glands. [] Psychiatric: Denies depression or anxiety. [] Heart Score: Risk Factors: Risk Factors: DM, Current or recent (<one month) smoker, HTN, HLP, family history of CAD, obesity. Risk Scores: Score 0 - 3: 2.5% MACE over next 6 weeks - Discharge Home Score 4 - 6: 20.3% MACE over next 6 weeks - Admit for Clinical Observation Score 7 - 10: 72.7% MACE over next 6 weeks - Early Invasive Strategies Current Medications: Current Medications Medications (Trade) Dose Ordered Sig/Kay Start Time Stop Time Status Last Admin Dose Admin Al Hydroxide/Mg Hydroxide (Mylanta Plus Xs) 30 ml 1X ONCE 11/29/19 19:45 11/29/19 19:46 DC Dicyclomine HCl (Bentyl) 20 mg 1X ONCE 11/29/19 19:45 11/29/19 19:46 DC Famotidine (Pepcid) 20 mg 1X ONCE 11/29/19 19:45 11/29/19 19:46 DC Allergies: Allergies: Allergies Coded Allergies Type Severity Reaction Last Updated Verified No Known Drug Allergies 09/11/13 No Physical Exam: PE: Constitutional: Well developed, well nourished, no acute distress, non-toxic appearance. [] HENT: Normocephalic, atraumatic, bilateral external ears normal, oropharynx moist, no oral exudates, nose normal. [] Eyes: PERRLA, EOMI, conjunctiva normal, no discharge. [] Neck: Normal range of motion, no tenderness, supple, no stridor. [] Cardiovascular:Heart rate regular rhythm, no murmur [] Lungs & Thorax: Bilateral breath sounds clear to auscultation [] Abdomen: Soft, nontender, nonacute abdomen. No involuntary guarding or rigidity noted. No acute peritonitis. Skin: Warm, dry, no erythema, no rash. [] Back: No tenderness, no CVA tenderness. [] Extremities: No tenderness, no cyanosis, no clubbing, ROM intact, no edema. [] Neurologic: Alert and oriented X 3, normal motor function, normal sensory function, no focal deficits noted. [] Psychologic: Affect normal, judgement normal, mood normal. [] Current Patient Data: Labs: Laboratory Tests Test 11/29/19 19:25 White Blood Count 8.5 x10^3/uL (4.0-11.0) Red Blood Count 4.32 x10^6/uL (3.50-5.40) Hemoglobin 12.2 g/dL (12.0-15.5) Hematocrit 37.3 % (36.0-47.0) Mean Corpuscular Volume 87 fL (79-100) Mean Corpuscular Hemoglobin 28 pg (25-35) Mean Corpuscular Hemoglobin Concent 33 g/dL (31-37) Red Cell Distribution Width 14.6 % (11.5-14.5) H Platelet Count 286 x10^3/uL (140-400) Neutrophils (%) (Auto) 66 % (31-73) Lymphocytes (%) (Auto) 21 % (24-48) L Monocytes (%) (Auto) 9 % (0-9) Eosinophils (%) (Auto) 3 % (0-3) Basophils (%) (Auto) 1 % (0-3) Neutrophils # (Auto) 5.6 x10^3/uL (1.8-7.7) Lymphocytes # (Auto) 1.8 x10^3/uL (1.0-4.8) Monocytes # (Auto) 0.7 x10^3/uL (0.0-1.1) Eosinophils # (Auto) 0.3 x10^3/uL (0.0-0.7) Basophils # (Auto) 0.1 x10^3/uL (0.0-0.2) Sodium Level 138 mmol/L (136-145) Potassium Level 3.4 mmol/L (3.5-5.1) L Chloride Level 102 mmol/L (98-107) Carbon Dioxide Level 31 mmol/L (21-32) Anion Gap 5 (6-14) L Blood Urea Nitrogen 12 mg/dL (7-20) Creatinine 0.9 mg/dL (0.6-1.0) Estimated GFR (Cockcroft-Gault) 87.8 BUN/Creatinine Ratio 13 (6-20) Glucose Level 129 mg/dL (70-99) H Calcium Level 9.0 mg/dL (8.5-10.1) Total Bilirubin Pending Aspartate Amino Transferase (AST) Pending Alanine Aminotransferase (ALT) Pending Alkaline Phosphatase Pending Total Protein Pending Albumin Pending Albumin/Globulin Ratio Pending Lipase Pending Laboratory Tests 11/29/19 19:25 Laboratory Tests 11/29/19 19:25 Vital Signs: Vital Signs Date Time Temp Pulse Resp B/P (MAP) Pulse Ox O2 Delivery O2 Flow Rate FiO2 11/29/19 19:20 98.2 97 18 189/82 (117) 97 Room Air 98.2 EKG: EKG: [] Radiology/Procedures: Radiology/Procedures: [] Course & Med Decision Making: Course & Med Decision Making Pertinent Labs and Imaging studies reviewed. (See chart for details) Patient is a well-appearing 34-year-old female who presents with a chief complaint of abdominal pain with 3 episodes of loose stool. Initial vital signs notable for elevated blood pressure but she does have a history of hypertension. Denies chest pain or shortness of breath. Basic labs were obtained and were grossly unremarkable. Urinalysis without evidence of infection. Gonorrhea and Chlamydia urine specimen sent for analysis. Unfor tunately at this time we are out of swabs to take vaginal samples. Patient will be notified of pending results. On repeat examination her symptoms have improved. Her abdomen is benign. She has tolerated p.o. Vital signs remained stable. I do feel is reasonable to defer advanced imaging at this time. She is in agreement with this. She was given 12 to 24-hour return precautions. Stable for discharge home. Dragon Disclaimer: Dragon Disclaimer: This electronic medical record was generated, in whole or in part, using a voice recognition dictation system. Departure Departure Impression: Primary Impression: Abdominal pain Qualified Codes: R10.84 - Generalized abdominal pain Additional Impressions: Loose stools Concern about STD in female without diagnosis Disposition: 01 HOME, SELF-CARE Condition: STABLE Referrals: BETTY CRAWFORD MD (PCP) Patient Instructions: Sexually Transmitted Disease Scripts Famotidine (PEPCID) 20 Mg Tablet 20 MG PO BID for 7 Days, #14 TAB Prov: CHRISTIANO NAM DO 11/29/19 Dicyclomine Hcl (DICYCLOMINE HCL) 20 Mg Tablet 1 TAB PO QID for 7 Days, #28 TAB 1 Refill Prov: CHRISTIANO NAM DO 11/29/19 Justicifation of Admission Dx: Justifications for Admission: Justification of Admission Dx: N/A CHRISTIANO NAM DO Nov 29, 2019 19:54
[2019-11-29 19:55] LABS: ALBUMIN 3.1 g/dL (3.4-5.0); ALBUMIN/GLOBULIN RATIO 0.7 (1.0-1.7); TOTAL BILIRUBIN 0.3 mg/dL (0.2-1.0); TOTAL PROTEIN 7.6 g/dL (6.4-8.2)
[2019-11-29 20:20] LABS: BILIRUBIN,URINE NEGATIVE (NEG); CLARITY,URINE CLEAR; COLOR,URINE YELLOW; NITRITE,URINE NEGATIVE (NEG); PROTEIN,URINE 100 mg/dL (NEG-TRACE)
[2019-11-29 20:23] LABS: U PREG PATIENT NEGATIVE (NEG)
[2019-11-29 20:24] LABS: AMORPHOUS SEDIMENT,UR PRESENT /HPF; BACTERIA,URINE FEW /HPF (0-FEW); RBC,URINE 0 /HPF (0-2); SQUAMOUS EPITHELIAL CELL,UR MOD /LPF
[2019-11-29] MEDS ORDERED: FAMO-63 PO (20:33)
[2019-11-29] MEDS ORDERED: DICY20TA3 PO (20:33)
== END 2019-11-29 20:35 | disposition home or self-care (01) ==
LOC: ER 18:56
DX: R10.84 Generalized abdominal pain (principal); R19.7 Diarrhea, unspecified; F41.9 Anxiety disorder, unspecified; I10 Essential (primary) hypertension; J42 Unspecified chronic bronchitis; I25.2 Old myocardial infarction; F43.10 Post-traumatic stress disorder, unspecified
CPT/HCPCS: 80053; 81001; 81025; 83690; 85025; 87491; 87591; 99284